=== PATIENT | male | born 1980 | race Caucasian/White ===

== ENCOUNTER 2023-08-04 10:56 | Outpatient (OUT) | payer OTHER, SELFPAY ==
--- NOTE | 2023-08-04 11:03 | XR_ITS ---
The [address] [address] Patient Name: VITO CHRISTIANSON MRN: [id number] date: 1980 Sex: M Assigned Patient Location: [facility] Current Patient Location: [facility] Accession/Order Number: [id number] Exam Date: 08/04/2023 11:05 Report Date: 08/04/2023 11:31 At the request of: HERI BAUTISTA Procedure: XR elbow LT min 3V PROCEDURE: XR elbow LT min 3V HISTORY: Injury to Left Elbow, Left Elbow Pain COMPARISON: None. FINDINGS: BONES:No fracture, acute abnormality, or significant arthropathy. SOFT TISSUES:No visible soft tissue swelling. EFFUSION:Moderate size joint effusion. OTHER: Negative. XR/XR elbow LT min 3V IMPRESSION: 1. Moderate size joint effusion of uncertain etiology. 2. No fracture or appreciable cortical avulsion. Electronically authenticated by: CHELE RODRIGUEZ Date: 08/04/2023 11:31
== END 2023-08-04 10:57 | disposition home or self-care (01) ==
PROVIDERS: Visit Provider Nurse Practitioner Family
DX: M25.522 Pain in left elbow (principal); M25.422 Effusion, left elbow
CPT/HCPCS: 73080

== ENCOUNTER 2024-11-27 23:06 | Emergency (ER) | payer OTHER, SELFPAY ==
[2024-11-27 23:17] VITALS: BP 188/112; PULSE 87; TEMP 36.5; O2SAT 97; BMI 24.4
--- OUTSIDE RECORDS SUMMARY | 2024-11-27 23:34 | XMS_ITS | CCD ---
Author Organization [facility] Care Team Providers Care Traffic Manager Name Role Phone PHYSICIAN, DEFAULT Unavailable Unavailable PHYSICIAN, DEFAULT Unavailable Unavailable DR CLARISA SOARES Primary Care Unavailable VANESSA BAJWA Attending Unavailable VANESSA BAJWA Admitting Unavailable CLIVE DEGROOT Unavailable Peggy Ryan Kathy Mcallister Attending Unavailable Kathy Mcallister Attending Unavailable Kathy Mcallister Attending Unavailable Kathy Mcallister Attending Unavailable Kathy Mcallister Admitting Unavailable Kathy Mcallister Attending Unavailable Kathy Mcallister Primary Care Physician Unavailable Primary Care Provider UnavailGILA Donald Attending Unavailable KATHY MCALLISTER Referring Unavailable Kathy Mcallister Admitting Unavailable Kathy Mcallister Attending Unavailable Deborah Aguilera Attending Deborah Purvis Referring UnavailDeborah Dillon Attending Unavaila farzana Medications Current Medications Medication Drug Class(es) Dates Sig (Normalized) Sig (Original) betamethasone 0.5 mg/ml topical cream (2 sources) Corticosteroid Start: 09-25-2024 betamethasone dipropionate 0.05 % cream Indications: Other atopic dermatitis Apply (1g) to affected areas (hands), up to twice a day when flared, do not use one the face, groin, or underarms, 30 day supply 45 g 11 09/25/2024 Active ondansetron 4 mg oral tablet (1 source) Serotonin-3 Receptor Antagonist Start: 07-23-2022 take 1 tablet by mouth every eight hours as needed Ondansetron HCl 4 MG 1 tablet Orally every 8 hours as needed for 7 days Jul, Active Problems Active Problems Problem Classification Problem Date Documented Da te Episodic/Chronic Allergic reactions (2 sources) Atopic dermatitis; Translations: [Other atopic dermatitis] 09-25-2024 Chronic Essential hypertension (2 sources) Hypertensive disorder 11-30-2013 Chronic Fracture of lower limb (1 source) Closed fracture of metatarsal bone 02-11-2010 Episodic Headache; including migraine (5 sources) Migraine, unspecified, not intractable, without status migrainosus; Translations: [Tension-type headache] Onset: 09-14-2021 Chronic Hemorrhoids (1 source) Hemorrhoids 07-20-2024 Episodic Immunizations and screening for infectious disease (1 source) Contact with and (suspected) exposure to other viral communicable diseases Episodic Intestinal infection (1 source) Viral intestinal infection, unspecified Episodic Neoplasms of unspecified nature or uncertain behavior (2 sources) Neoplastic disease; Translations: [Neoplasm of unspecified behavior of bone, soft tissue, and skin] 09-25-2024 Episodic Other aftercare (1 source) Other fpc (current) drug therapy; Translations: [OTH HALF-WAY CURRENT DRUG THERAPY] Onset: 09-16-2021 Episodic Other and unspecified benign neoplasm (2 sources) Melanocytic nevus of trunk; Translations: [Melanocytic nevi of trunk] 09-25-2024 Episodic Other circulatory disease (2 sources) Spider nevus; Translations: [Nevus, non-neoplastic] 09-25-2024 Episodic Other non-traumatic joint disorders (1 source) Shoulder pain 08-25-2013 Episodic Other nutritional; endocrine; and metabolic disorders (1 source) Body mass index 25-29 - overweight 09-04-2024 Episodic Other nutritional; endocrine; and metabolic disorders (1 source) Overweight in adulthood with body mass index of 25 or more but less than 30 09-04-2024 Episodic Other skin disorders (2 sources) Lentiginosis; Translations: [Other melanin hyperpigmentation] 09-25-2024 Episodic Other skin disorders (2 sources) Seborrheic keratosis; Translations: [Other seborrheic keratosis] 09-25-2024 Episodic Residual codes; unclassified (1 source) Tobacco user 07-20-2024 Episodic Skin and subcutaneous tissue infections (1 source) Furuncle 07-20-2024 Episodic Substance-related disorders (2 sources) Nicotine dependence, cigarettes, uncomplicated; Translations: [Smoker] Onset: 09-16-2021 5 Chronic Unclassified (1 source) Patient encounter status 09-04-2024 Past or Other Problems Problem Classification Problem Date Documented Da te Episodic/Chronic Unclassified (1 source) Avulsion fracture (morphologic abnormality) 08-25-2013 Results Test Name Value Interpretation Reference Range Facility Patient Letter FTMCon 2024 Patient Letter [facility] Patient Letter [facility] November 21, 2024 URBANO POLANCO [address] [place] [address] [place] [address] : 1980 Below is a summary of the results of your recent colonoscopy. Your results have been sent to your primary care provider along with recommendations on when the procedure should be repeated. COLONOSCOPY WITH POLYP REMOVAL OR BIOPSY Type of polyp no polyps identified Based on your results we are recommending you repeat the procedure in 10 years You will be placed in our reminder system and will receive a reminder letter prior to your next due date. [facility] [phone] Normal [facility] Reminderson 11-21-2024 Reminders Reminders From: Bárbara Cordon MA S To: [facility] - Reminders/Recalls; Sent: 11/21/2024 13:08:05 EDT Show up: 09/12/2034 13:07:00 EDT Subject: colon recall Due Date/Time: 10/31/2034 13:07:00 EDT Reminder/Recall [address] Aguilera 10/31/24 Normal [facility] Ambulatory Visit Summaryon 0 10-16-2024 Ambulatory Visit Summary Ambulatory Visit Summary URBANO POLANCO :1980 Visit Date:10/16/2024 Ambulatory Visit Instructions Your Diagnosis Screen for colon cancer Smoker Your Care Team Attending Physician - Willy CAMPUZANO, Deborah Green Primary Care Physician - Kathy Mcallister MD This Is Your Medications List magnesium/potassium/s odium sulfates (obsolete) (Suprep Bowel Prep Kit oral liquid) Contact prescribing physician if questions or concerns cyclobenzaprine (cyclobenzaprine 5 mg Tab) Procedures Performed Arthroscopy of Knee, Hernia repair, Open reduction of fracture of hand, Rotator cuff. Discharge Vitals Heart Rate (Peripheral) 76 Blood Pressure 150/101 Height 69 in Height 176 cm Weight 169.094 lb Weight 76.7 kg BMI 24.76 What to do next Scheduled Follow-Up Appointments Wednesday 7:00 AM EDT With: Aly CAMPUZANO, Kathy Shahid Where: [address] [address]- Medications What How Much When Instructions New magnesium/ potassium/ sodium sulfates (obsolete) (Suprep Bowel Prep Kit oral liquid) 177 Milliliter By Mouth As Directed Duration: 2 Doses dilute each 177 ml bottle and drink according to box directions or as directed by physician Pickup at [facility]/pharmacy #[id number] Unchanged cyclobenzaprine (cyclobenzaprine 5 mg Tab) Contact prescribing physician if questions or concerns Pharmacy Information [facility]/pharmacy #[id number]: [address] [place], [place] [id number] [phone] Allergies No Known Allergies Problems Ongoing - Any problem that you are currently receiving treatment for. BMI 25.0-25.9,adult Boil Hemorrhoids HTN (hypertension) Overweight (BMI 25.0-29.9) Physical exam Screen for colon cancer Smoker Tension headache Historical - Any problem that you are no longer receiving treatment for. Avulsion fracture Closed fracture metatarsal HTN [Hypertension] Shoulder pain Patient Survey You may receive a survey via text or e-mail asking about your office visit. Please share your experience with us by completing your survey. We appreciate your feedback and thank you for choosing us for your care. Normal [facility] Gastroenterology Office/Clin ic Noteon 10-16-2024 Gastroenterology Office/Clinic Note Gastroenterology Office/Clinic Note Chief Complaint intermittent rectal bleeding HPI Staff New patient is a(n) 43 year old male who was referred by Dr Mcallister for a screening colonoscopy. Denies Fhx colon cancer/diseases. Denies previous EGD/Colonoscopy or Cologuard. Denies hx colon cancer/polyps. Denies n/v/c/d, abd pain or mucus stools. - c/o intermittent rectal bleeding GLP-1 agonists? no History of Present Illness Reviewed HPI collected by staff Review of Systems PHQ Score Initial Depression Screen Score: 0 SCORE All systems reviewed, negative; Except for above Physical Exam Vitals & Measurements HR: 76(Peripheral) BP: 150/101 HT: 69 in HT: 176 cm WT: 169.094 lb WT: 76.7 kg BMI: 24.76 No acute distress Assessment/Plan 1. Screen for colon cancer (Z12.11: Encounter for screening for malignant neoplasm of colon) - Schedule Colonoscopy to evaluate. Discussed risks such as bleeding, injury and perforation as well as benefits. Patient agreeable. 2. Smoker (F17.200: Nicotine dependence, unspecified, uncomplicated) Counseled on tobacco cessation I, Miladis Little, personally scribed for Deborah Aguilera on 10/16/2024 08:51:29. . Documentation recorded by Miladis Little, accurately reflects the services I performed and decisions made by me. Deborah Aguilera MD Follow-up No qualifying data available Problem List/Past Medical History Ongoing BMI 25.0-25.9,adult Boil Hemorrhoids HTN (hypertension) Overweight (BMI 25.0-29.9) Physical exam Screen for colon cancer Smoker Tension headache Historical Avulsion fracture Closed fracture metatarsal HTN [Hypertension] Shoulder pain Procedure/Surgical History Arthroscopy of Knee, Hernia repair, Open reduction of fracture of hand, Rotator cuff. Medications cyclobenzaprine 5 mg Tab Suprep Bowel Prep Kit oral liquid, 177 mL, Oral, As Directed Allergies No Known Allergies Social History Alcohol Current. Liquor. 1-2 times per week., 07/26/2024 Substance Abuse - Denies Substance Abuse, 01/18/2010 Never., 07/26/2024 Tobacco 10 or more cigarettes (1/2 pack or more)/day in last 30 days Tobacco Use:. Never Smokeless Tobacco Use:. Cigarettes, 20 per day. Ready to change: No. Household tobacco concerns: No., 10/16/2024 Family History Hypertension: Mother and Father. Immunizations Vaccine Date Status hepatitis B adult vaccine 11/18/2004 Recorded hepatitis B adult vaccine 06/17/2004 Recorded hepatitis B adult vaccine 05/13/2004 Recorded Normal [facility] Comment on above: Result Comment: Elec tronically Signed By: Willy CAMPUZANO, Deborah Green\.br\Date and Time Signed: 10/16/24 08:53 EDT\.br\Electronically Co-Signed By: Miladis Little MA\.galilea\Date and Time Co-Signed: 10/16/24 08:53 EDT No Panel Informationon 09-25 Type of biopsy: tangential Informed consent: discussed and consent obtained Informed consent comment: The risks and benefits of the biopsy were discussed. Risks include but are not limited to bleeding, infection, scarring, pain, and nerve damage. An opportunity to ask questions prior to the procedure was permitted and all questions were answered. Patient was prepped and draped in usual sterile fashion: area cleansed with alcohol. Anesthesia: the lesion was anesthetized in a standard fashion Anesthetic: 1% lidocaine w/ epinephrine 1-100,000 buffered w/ 8.4% NaHCO3 Instrument used: DermaBlade Hemostasis achieved with: electrodesiccation Outcome: patient tolerated procedure well Outcome comment: The specimen was placed in a prelabeled formalin container to be sent for pathology Post-procedure details: sterile dressing applied and wound care instructions given Post-procedure details comment: Emphasized need to contact clinic for any signs of infection, uncontrollable bleeding, or complications. Dressing type: bandage Additional details: Photo taken Amount of lidocaine used: 0.6 cc [facility] Type of biopsy: tangential Informed consent: discussed and consent obtained Informed consent comment: The risks and benefits of the biopsy were discussed. Risks include but are not limited to bleeding, infection, scarring, pain, and nerve damage. An opportunity to ask questions prior to the procedure was permitted and all questions were answered. Patient was prepped and draped in usual sterile fashion: area cleansed with alcohol. Anesthesia: the lesion was anesthetized in a standard fashion Anesthetic: 1% lidocaine w/ epinephrine 1-100,000 buffered w/ 8.4% NaHCO3 Instrument used: DermaBlade Hemostasis achieved with: electrodesiccation Outcome: patient tolerated procedure well Outcome comment: The specimen was placed in a prelabeled formalin container to be sent for pathology Post-procedure details: sterile dressing applied and wound care instructions given Post-procedure details comment: Emphasized need to contact clinic for any signs of infection, uncontrollable bleeding, or complications. Dressing type: bandage Additional details: Photo taken Amount of lidocaine used: 0.4 cc [facility] Ambulatory Visit Summaryon 0 09-04-2024 Ambulatory Visit Summary Ambulatory Visit Summary URBANO POLANCO :1980 Visit Date:09/04/2024 Ambulatory Visit Instructions Your Diagnosis Physical exam HTN (hypertension) BMI 25.0-25.9,adult Overweight (BMI 25.0-29.9) Smoker Encounter for surveillance of abnormal nevi Colon cancer screening Your Care Team Attending Physician - Kathy Mcallister MD Primary Care Physician - Kathy Mcallister MD This Is Your Medications List [Image Removed: STOP]Stop taking these medications buPROPion (Wellbutrin SR 150 mg Tab-ER) Procedures Performed Arthroscopy of Knee, Hernia repair, Open reduction of fracture of hand, Rotator cuff. Discharge Vitals Temperature (Tympanic) 36.8 ???C Heart Rate (Peripheral) 84 Respiratory Rate 18 Blood Pressure 138/86 Height 176.5 cm Height 69 in Weight 79.6 kg Weight 175.488 lb BMI 25.55 What to do next Scheduled Follow-Up Appointments Wednesday 7:00 AM EDT With: Kathy Mcallister MD Where: [facility] [place] [phone]- Someone Will Contact You Regarding These Appointments [facility] External Ambulatory Referral, Dermatology, 09/04/24 7:48:00 EDT, Physical exam HTN (hypertension) BMI 25.0-25.9,adult Overweight (BMI 25.0-29.9) Smoker Medications What How Much When Why Comments Stop Taking buPROPion (Wellbutrin SR 150 mg Tab-ER) 1 Tablets By Mouth 2 times a day HTN (hypertension) Hemorrhoids Tension headache Boil BMI 25.0-25.9,adult Overweight (BMI 25.0-29.9) Tobacco use Allergies No Known Allergies Problems Ongoing - Any problem that you are currently receiving treatment for. BMI 25.0-25.9,adult Boil Hemorrhoids HTN (hypertension) Overweight (BMI 25.0-29.9) Physical exam Smoker Tension headache Historical - Any problem that you are no longer receiving treatment for. Avulsion fracture Closed fracture metatarsal HTN [Hypertension] Shoulder pain Patient Survey You may receive a survey via text or e-mail asking about your office visit. Please share your experience with us by completing your survey. We appreciate your feedback and thank you for choosing us for your care. Education [employer] BMI for Adults Body mass index (BMI) is a number found using a person's weight and height. BMI can help tell how much of a person's weight is made up of fat. BMI does not measure body fat directly. It is used instead of tests that directly measure body fat, which can be difficult and expensive. What are BMI measurements used for? BMI is useful to: ??? Find out if your weight puts you at higher risk for medical problems. ??? Help recommend changes, such as in diet and exercise. This can help you reach a healthy weight. BMI screening can be done again to see if these changes are working. How is BMI calculated? Your height and weight are measured. The BMI is found from those numbers. This can be done with U.S. or metric measurements. Note that charts and online BMI calculators are available to help you find your BMI quickly and easily without doing these calculations. To calculate your BMI in U.[place]. measurements: 1. Measure your weight in pounds (lb). 2. Multiply the number of pounds by 703. ??? So, for an adult who weighs 150 lb, multiply that number by 703: 150 x 703, which equals 105,450. 3. Measure your height in inches. Then multiply that number by itself to get a measurement called inches squared. ??? So, for an adult who is 70 inches tall, the inches squared measurement is 70 inches x 70 inches, which equals 4,900 inches squared. 4. Divide the total from step 2 (number of lb x 703) by the total from step 3 (inches squared): 105,450 ??? 4,900 = 21.5. This is your BMI. To calculate your BMI in metric measurements: 1. Measure your weight in kilograms (kg). ??? For this example, the weight is 70 kg. 2. Measure your height in meters (m). Then multiply that number by itself to get a measurement called meters squared. ??? So, for an adult who is 1.75 m tall, the meters squared measurement is 1.75 m x 1.75 m, which equals 3.1 meters squared. 3. Divide the number of kilograms (your weight) by the meters squared number. In this example: 70 ??? 3.1 = 22.6. This is your BMI. What do the results mean? BMI charts are used to see if you are underweight, normal weight, overweight, or obese. The following guidelines will be used: ??? Underweight: BMI less than 18.5. ??? Normal weight: BMI between 18.5 and 24.9. ??? Overweight: BMI between 25 and 29.9. ??? Obese: BMI of 30 or above. BMI is a tool and cannot diagnose a condition. Talk with your health care provider about what your BMI means for you. Keep these notes in mind: ??? Weight includes fat and muscle. Someone with a muscular build, such as an athlete, may have a BMI that is higher than 24.9. In cases like th (more content not included)... Normal [facility] CBC w/ Auto Diffon 5 Basophils/100 WBC (Bld) 1.2 % Normal 0.0-2.0 [facility] Comment on above: Performed By: #### 2 [id number] #### [facility] [address] [place] [address] Basophils/Leukocytes Auto (Bld) [Pure # fraction] 0.1 E9/L Normal 0.0-0.2 [facility] Comment on above: Performed By: #### 2 [id number] #### [facility] [address] [place] [address] Eosinophils (Bld) [#/Vol] 0.3 E9/L Normal 0.0-0.5 [facility] Comment on above: Performed By: #### 2 [id number] #### [facility] [address] [place] [address] Eosinophils/100 WBC (Bld) 4.6 % Normal 0.0-8.0 [facility] Comment on above: Performed By: #### 2 [id number] #### [facility] [address] [place] [address] Erythrocyte distribution width (RBC) [Ratio] 12.9 % Normal 10.9-14.2 [facility] Comment on above: Performed By: #### 2 [id number] #### [facility] [address] [place] [address] Hematocrit (Bld) [Volume fraction] 45.9 % Normal 37.7-49.0 [facility] Comment on above: Performed By: #### 2 [id number] #### [facility] [address] [place] [address] Hemoglobin (Bld) [Mass/Vol] 15.9 g/dL Normal 13.5-17.5 [facility] Comment on above: Performed By: #### 2 [id number] #### [facility] [address] [place] [address] Lymphocytes (Bld) [#/Vol] 2.3 E9/L Normal 1.0-4.0 [facility] Comment on above: Performed By: #### 2 [id number] #### [facility] [address] [place] [address] Lymphocytes/100 WBC (Bld) 34.0 % Normal 14.0-50.0 [facility] Comment on above: Performed By: #### 2 [id number] #### [facility] [address] [place] [address] MCH (RBC) [Entitic mass] 30.3 pg Normal 27.0-34.0 [facility] Comment on above: Performed By: #### 2 [id number] #### [facility] [address] [place] [address] MCHC (RBC) [Mass/Vol] 34.5 g/dL Normal 31.4-36.0 [facility] Comment on above: Performed By: #### 2 [id number] #### [facility] [address] [place] [address] MCV (RBC) [Entitic vol] 87.6 fL Normal 80.0-100.0 [facility] Comment on above: Performed By: #### 2 [id number] #### [facility] [address] [place] [address] Monocytes (Bld) [#/Vol] 0.4 E9/L Normal 0.2-1.0 [facility] Comment on above: Performed By: #### 2 [id number] #### [facility] [address] [place] [address] Neutrophils (Bld) [#/Vol] 3.7 E9/L Normal 2.0-7.5 [facility] Comment on above: Performed By: #### 2 [id number] #### [facility] [address] [place] [address] Neutrophils/100 WBC (Bld) 53.8 % Normal 36.0-75.0 [facility] Comment on above: Performed By: #### 2 [id number] #### [facility] [address] [place] [address] Platelet 263.0 E9/L Normal 150.0-500.0 [facility] Comment on above: Performed By: #### 2 [id number] #### [facility] [address] [place] [address] Platelet mean volume (Bld) [Entitic vol] 8.2 fL Normal 6.4-10.8 [facility] Comment on above: Performed By: #### 2 [id number] #### [facility] [address] [place] [address] RBC (Bld) [#/Vol] 5.2 E12/L Normal 4.3-5.9 [facility] Comment on above: Performed By: #### 2 [id number] #### [facility] [address] [place] [address] WBC corrected for nucl RBC Auto (Bld) [#/Vol] 6.9 E9/L Normal 4.0-11.0 [facility] Comment on above: Performed By: #### 2 [id number] #### [facility] [address] [place] [address] CHEMISTRYOrdered By: SYSTEM SYSTEM on 09-04-2024 Albumin [Mass/Vol] 4.5 g/dL Normal 3.3 - 5.0 gm/dL [facility] Albumin/Globulin [Mass ratio] 1.9 {ratio} Normal 1.1 - 2.2 [facility] ALP [Catalytic activity/Vol] 104 [iU]/d High 21 - 98 Int._Unit/L [facility] ALT No additional P-5'-P [Catalytic activity/Vol] 12 [iU]/d Normal 6 - 46 Int._Unit/L [facility] Anion gap [Moles/Vol] 14 mmol/L Normal 6 - 16 mEq/L [facility] AST [Catalytic activity/Vol] 19 [iU]/d Normal 5 - 43 Int._Unit/L [facility] Bilirubin [Mass/Vol] 0.6 mg/dL Normal 0.0 - 1 .1 mg/dL [facility] Calcium [Mass/Vol] 9.1 mg/dL Normal 8.9 - 11. 1 mg/dL [facility] Chloride [Moles/Vol] 106 mmol/L Normal 101 - 1 11 mmol/L [facility] Cholesterol [Mass/Vol] 183 mg/dL Normal 120 - 200 mg/dL [facility] Cholesterol in HDL [Mass/Vol] 52 mg/dL Invalid Interpretation Code [facility] Comment on above: Result Comment: '>= 60 LOW RISK' '<= 40 HIGH RISK' Cholesterol in LDL [Mass/Vol] 115 mg/dL Normal <=129mg/dL [facility] Cholesterol in VLDL [Mass/Vol] 32 mg/dL Normal 7 - 40 mg/dL [facility] CO2 [Moles/Vol] 25 mmol/L Normal 21 - 31 mmol/L [facility] Creatinine [Mass/Vol] 1.0 mg/dL Normal 0.5 - 1.3 mg/dL [facility] eGFR 95 mL/min/1.73 m2 Normal >=59mL/min /1 .73 m2 [facility] Globulin (S) [Mass/Vol] 2.4 g/dL Normal 1.4 - 4.0 gm/dL [facility] Glucose [Mass/Vol] 84 mg/dL Normal 55 - 199 mg/dL [facility] Potassium [Moles/Vol] 4.1 mmol/L Normal 3.5 - 5.3 mmol/L [facility] Protein [Mass/Vol] 6.9 g/dL Normal 6.0 - 7.8 gm/dL [facility] Sodium [Moles/Vol] 141 mmol/L Normal 135 - 145 mmol/L [facility] Triglyceride [Mass/Vol] 160 mg/dL High <=149mg/dL [facility] Urea nitrogen [Mass/Vol] 9 mg/dL Normal 5 - 21 mg/dL [facility] Urea nitrogen/Creatinine [Mass ratio] 9 mg/mg Low 10 - 20 [facility] CMPon 09-04-2024 Albumin [Mass/Vol] 4.5 g/dL Normal 3.3-5.0 [facility] Comment on above: Performed By: #### 2 [id number] #### [facility] [address] [place] [address] Albumin/Globulin (S) [Mass conc ratio] 1.9 Normal 1.1-2.2 [facility] Comment on above: Performed By: #### 2 [id number] #### [facility] [address] [place] [address] ALP [Catalytic activity/Vol] 104 Int._Unit/L High 21-98 [facility] Comment on above: Performed By: #### 2 [id number] #### [facility] [address] [place] [address] ALT No additional P-5'-P [Catalytic activity/Vol] 12 Int._Unit/L Normal 6-46 [facility] Comment on above: Performed By: #### 2 [id number] #### [facility] [address] [place] [address] Anion gap [Moles/Vol] 14 mmol/L Normal 6-16 [facility] Comment on above: Performed By: #### 2 [id number] #### [facility] [address] [place] [address] AST [Catalytic activity/Vol] 19 Int._Unit/L Normal 5-43 [facility] Comment on above: Performed By: #### 2 [id number] #### [facility] [address] [place] [address] Bilirubin [Mass/Vol] 0.6 mg/dL Normal 0.0-1.1 [facility] Comment on above: Performed By: #### 2 [id number] #### [facility] [address] [place] [address] Calcium [Mass/Vol] 9.1 mg/dL Normal 8.9-11.1 [facility] Comment on above: Performed By: #### 2 [id number] #### [facility] [address] [place] [address] Chloride [Moles/Vol] 106 mmol/L Normal 101-111 [facility] Comment on above: Performed By: #### 2 [id number] #### [facility] [address] [place] [address] CO2 [Moles/Vol] 25 mmol/L Normal 21-31 [facility] Comment on above: Performed By: #### 2 [id number] #### [facility] [address] [place] [address] Creatinine [Mass/Vol] 1.0 mg/dL Normal 0.5-1.3 [facility] Comment on above: Performed By: #### 2 [id number] #### [facility] [address] [place] [address] Globulin (S) [Mass/Vol] 2.4 g/dL Normal 1.4-4.0 [facility] Comment on above: Performed By: #### 2 [id number] #### [facility] [address] [place] [address] Glucose [Mass/Vol] 84 mg/dL Normal 55-199 [facility] Comment on above: Performed By: #### 2 [id number] #### [facility] [address] [place] [address] Potassium [Moles/Vol] 4.1 mmol/L Normal 3.5-5.3 [facility] Comment on above: Performed By: #### 2 [id number] #### [facility] [address] [place] [address] Protein [Mass/Vol] 6.9 g/dL Normal 6.0-7.8 [facility] Comment on above: Performed By: #### 2 [id number] #### [facility] [address] [place] [address] Sodium [Moles/Vol] 141 mmol/L Normal 135-145 [facility] Comment on above: Performed By: #### 2 [id number] #### [facility] [address] [place] [address] Urea nitrogen [Mass/Vol] 9 mg/dL Normal 5-21 [facility] Comment on above: Performed By: #### 2 [id number] #### [facility] [address] [place] [address] Urea nitrogen/Creatinine [Mass ratio] 9 No Units Low 10-20 [facility] Comment on above: Performed By: #### 2 [id number] #### [facility] [address] [place] [address] Family Medicine Office/Clini c Noteon 09-04-2024 Family Medicine Office/Clinic Note Family Medicine Office/Clinic Note Chief Complaint Annual Wellness PE Comprehensive physical examination and evaluation of skin changes. HPI Staff Pt presents today for annual wellness. Health Maintenance: Colonoscopy: no PSA: no Last Labs: none Does have some spots on his face that he would like to get looked at. History of Present Illness The patient is a 43-year-old male presenting for a general medical examination, including an evaluation of skin changes. During the visit, the patient expressed concerns about spots on his skin, specifically a particular area on the face that began small and increased in size. He noted the initial size of the lesion was small, similar to others on his face, which have since proliferated. The patient reported a history of hypertension and noted being overweight with a BMI corresponding to 25.0-29.9. He is also a smoker with nicotine dependence. The blood pressure was observed to be stable, and weight management advice included losing 5-10 pounds, although this was acknowledged as challenging with age. Additional past medical history includes a history of nicotine use, with patient acknowledgment of a reduced frequency of motorcycle riding and minimal dietary restrictions, preferring self-prepared meals to dining out. Family history was addressed; no definitive family history of colon cancer was identified. However, there was a vague recollection of his grandfather on the maternal side having some internal issues, though not confirmed as cancer-related, and a past diagnosis of lung cancer was noted without specific inheritance guidance. - Discussion on the importance of weight management and recommendation to lose 5-10 pounds. - Consideration for colorectal screening with Cologuard or colonoscopy; the latter was preferred. - Advising on dermatological consultation for skin lesions. - Skin check advisement due to past case of melanoma and high motivational influence by peer age-specific diagnosis. - Emphasis on continued and regular exercise regimen. - Discussion regarding smoking status and potential smoking cessation plans for better disease risk reduction. Review of Systems PHQ Score Initial Depression Screen Score: 0 SCORE Physical Exam Vitals & Measurements T: 36.8 ???C(Tympanic) HR: 84(Peripheral) RR: 18 BP: 138/86 SpO2: 98% HT: 69 in HT: 176.5 cm WT: 175.488 lb WT: 79.6 kg BMI: 25.55 General: alert, no acute distress ENMT: oral mucosa moist Cardiovascular: Regular rate and rhythm, normal peripheral perfusion Respiratory: Lungs clear to auscultation, respirations non labored Extremities: no deformity, no trauma Neurological: oriented x 4, level of consciousness appropriate for age, CN II-XII intact, motor strength equal & normal bilaterally, speech normal Abdomen: Soft, Non-tender, Non-distended, + Bowel sounds Assessment/Plan 1. Physical exam (Z00.00: Encounter for general adult medical examination without abnormal findings) Routine examination with focus on colon health; patient elects for colonoscopy screening around age 44 due to absent family colon cancer history. Ordered: CBC w/ Auto Diff Comprehensive Metabolic Panel Lipid Panel 2. HTN (hypertension) (I10: Essential (primary) hypertension) Maintain stable blood pressure through lifestyle modifications. Encourage ongoing adherence to exercise routine and diet monitoring. Ordered: CBC w/ Auto Diff Comprehensive Metabolic Panel Lipid Panel 3. BMI 25.0-25.9,adult (Z68.25: Body mass index [BMI] 25.0-25.9, adult) BMI education added. 4. Overweight (BMI 25.0-29.9) (E66.3: Overweight) The plan involves a target weight loss of 5-10 pounds, supported by recommendations for dietary improvements and continued regular exercise. 5. Smoker (F17.200: Nicotine dependence, unspecified, uncomplicated) Please continue working on smoking cessation. 6. Encounter for surveillance of abnormal nevi (Z13.89: Encounter for screening for other disorder) Dermatology referral for evaluation of facial lesions identified to seek professional assessment and treatment. 43-year-old male with essential hypertension and overweight presenting for general medical examination and dermatological evaluation. The patient maintains a stable blood pressure with lifestyle modification recommendations, including weight reduction. Facial lesions noted; dermatologic assessment advised. No significant family history of colon cancer reported, suggesting routine screening upon turning 44. Nicotine dependence noted; cessation discussions recommended for disease risk reduction. Patient reported regular exercise adherence. During the visit, I thoroughly discussed the importance of weight management and its impact on overall health with the patient, advising a weight loss plan of 5-10 pounds through diet and regular exercise. I reviewed options for colon cancer screening, offering Cologuard or colonoscopy, with the patient preferring the la (more content not included)... Normal [facility] Comment on above: Result Comment: Elec tronically Signed By: Aly CAMPUZANO, Kathy Shahid\.br\Date and Time Signed: 09/04/24 07:47 EDT HEMATOLOGYOrdered By: SYSTEM SYSTEM on 09-04-2024 Basophils/100 WBC (Bld) 1.2 % Normal 0.0 - 2.0 % Remisol Heme Basophils/Leukocytes Auto (Bld) [Pure # fraction] 0.1 E9/L Normal 0.0 - 0.2 E9/L [facility] Eosinophils (Bld) [#/Vol] 0.3 E9/L Normal 0.0 - 0.5 E9/L [facility] Eosinophils/100 WBC (Bld) 4.6 % Normal 0.0 - 8.0 % Rem[facility]e Erythrocyte distribution width (RBC) [Ratio] 12.9 % Normal 10.9 - 14.2 % [facility] Hematocrit (Bld) [Volume fraction] 45.9 % Normal 37.7 - 49.0 % [facility] Hemoglobin (Bld) [Mass/Vol] 15.9 g/dL Normal 13.5 - 17.5 gm/dL [facility] Lymphocytes (Bld) [#/Vol] 2.3 E9/L Normal 1.0 - 4.0 E9/L [facility] Lymphocytes/100 WBC (Bld) 34.0 % Normal 14.0 - 50.0 % Remisol Heme MCH (RBC) [Entitic mass] 30.3 pg Normal 27.0 - 34.0 pg Remisol Heme MCHC (RBC) [Mass/Vol] 34.5 g/dL Normal 31.4 - 36.0 gm/dL [facility]e MCV (RBC) [Entitic vol] 87.6 fL Normal 80.0 - 100.0 fL [facility] Monocytes (Bld) [#/Vol] 0.4 E9/L Normal 0.2 - 1.0 E9/L [facility]e Monocytes/100 WBC (Bld) 6.4 % Normal 4.0 - 14.0 % Rem[facility] Heme Neutrophils (Bld) [#/Vol] 3.7 E9/L Normal 2.0 - 7.5 E9/L [facility] Neutrophils/100 WBC (Bld) 53.8 % Normal 36.0 - 75.0 % [facility] Platelet 263.0 E9/L Normal 150.0 - 500.0 E9/L [facility] Platelet mean volume (Bld) [Entitic vol] 8.2 fL Normal 6.4 - 10.8 fL [facility]e RBC (Bld) [#/Vol] 5.2 E12/L Normal 4.3 - 5.9 E12/L [facility] WBC corrected for nucl RBC Auto (Bld) [#/Vol] 6.9 E9/L Normal 4.0 - 11.0 E9/L [facility] Lipid Panelon 09-04-2024 Cholesterol [Mass/Vol] 183 mg/dL Normal 120-200 [facility] Comment on above: Performed By: #### 2 [id number] #### [facility] [address] [place] [address] Cholesterol in HDL [Mass/Vol] 52 mg/dL Invalid Interpretation Code [facility] Comment on above: Result Comment: '>= 60 LOW RISK' '<= 40 HIGH RISK' Performed By: #### 2 [id number] #### [facility] [address] [place] [address] Cholesterol in LDL [Mass/Vol] 115 mg/dL Normal <=129 [facility] Comment on above: Performed By: #### 2 [id number] #### [facility] [address] [place] [address] Cholesterol in VLDL [Mass/Vol] 32 mg/dL Normal 7-40 [facility] Comment on above: Performed By: #### 2 [id number] #### [facility] [address] [place] [address] Triglyceride [Mass/Vol] 160 mg/dL High <=149 [facility] Comment on above: Performed By: #### 2 [id number] #### [facility] [address] [place] [address] eGFRon 09-04-2024 eGFR 95 mL/min/1.73 m2 Normal >=59 [facility] Comment on above: Performed By: #### 1 [id number] #### [facility] [address] [place] [address] Ambulatory Visit Summaryon 0 07-27-2024 Ambulatory Visit Summary Ambulatory Visit Summary MISAJUAN PABLO LERUFINA Navarro :1980 Visit Date:07/27/2024 Ambulatory Visit Instructions Your Diagnosis HTN (hypertension) Hemorrhoids Tension headache Boil BMI 24.0-24.9, adult Tobacco use Your Care Team Attending Physician - Kathy Mcallister MD Primary Care Physician - Kathy Mcallister MD This Is Your Medications List buPROPion (Wellbutrin SR 150 mg Tab-ER) ciprofloxacin (Cipro 500 mg Tab) Procedures Performed Arthroscopy of Knee, Hernia repair, Open reduction of fracture of hand, Rotator cuff. Discharge Vitals Temperature (Tympanic) 36.8 ???C Heart Rate (Peripheral) 84 Respiratory Rate 18 Blood Pressure 136/86 Height 176.5 cm Height 69 in Weight 76.7 kg Weight 169.094 lb BMI 24.62 What to do next Scheduled Follow-Up Appointments 2024 7:15 AM EDT With: Kathy Mcallister MD Where: [address] [address]- Medications What How Much When Why Instructions Unchanged buPROPion (Wellbutrin SR 150 mg Tab-ER) 1 Tablets By Mouth 2 times a day HTN (hypertension) Hemorrhoids Tension headache Boil BMI 25.0-25.9,adult Overweight (BMI 25.0-29.9) Tobacco use Unchanged ciprofloxacin (Cipro 500 mg Tab) 1 Tablets By Mouth Every 12 hours HTN (hypertension) Hemorrhoids Tension headache Boil BMI 25.0-25.9,adult Overweight (BMI 25.0-29.9) Tobacco use Duration: 7 Days Allergies No Known Allergies Problems Ongoing - Any problem that you are currently receiving treatment for. BMI 24.0-24.9, adult BMI 25.0-25.9,adult Boil Hemorrhoids HTN (hypertension) Overweight (BMI 25.0-29.9) Tension headache Historical - Any problem that you are no longer receiving treatment for. Avulsion fracture Closed fracture metatarsal HTN [Hypertension] Shoulder pain Patient Survey You may receive a survey via text or e-mail asking about your office visit. Please share your experience with us by completing your survey. We appreciate your feedback and thank you for choosing us for your care. Normal [facility] Family Medicine Office/Clini c Noteon 07-27-2024 Family Medicine Office/Clinic Note Family Medicine Office/Clinic Note Chief Complaint 1wk follow up HPI Staff Pt presents today for 1wk follow up to boil on leg. Given cipro BID x7days. Took for 4 days then got sick, then restarted yesterday. Also given Wellbutrin to aid in smoking cessation. Did start last Wednesday, but then stopped when he was sick. Plans on restarting today. States he was supposed to get a muscle relaxer for tension headaches, but nothing was sent to pharmacy. Boil is black/purple. States it has gone down in size. History of Present Illness Here for follow up. NO issues at this time. Would like to try the muscle relaxer for his head aches. Restarted his meds after getting sick. Review of Systems PHQ Score Initial Depression Screen Score: 0 SCORE Physical Exam Vitals & Measurements T: 36.8 ???C(Tympanic) HR: 84(Peripheral) RR: 18 BP: 136/86 SpO2: 96% HT: 69 in HT: 176.5 cm WT: 76.7 kg WT: 169.094 lb BMI: 24.62 General: alert, no acute distress ENMT: oral mucosa moist, Cardiovascular: normal peripheral perfusion Respiratory: respirations non labored Extremities: no deformity, no trauma, Boil is not a resolving. Area is purple and becoming flesh colored. Neurological: oriented x 4, LOC appropriate for age, CN II-XII intact, motor strength equal & normal bilaterally, speech normal Assessment/Plan 1. HTN (hypertension) (I10: Essential (primary) hypertension) At goal. Not on meds. Will resolve at this time 2. Hemorrhoids (K64.9: Unspecified hemorrhoids) NO issues today. Doing well. 3. Tension headache (G44.209: Tension-type headache, unspecified, not intractable) Will do flexiril 5mg daily. NO drinking or driving. 4. Boil (L02.92: Furuncle, unspecified) Improving. Please finish the cipro. 5. Tobacco use (Z72.0: Tobacco use) Continue wellbutrin. Follow up in 6 weeks for a CPE. Orders: cyclobenzaprine, 5 mg = 1 tab(s), Oral, TID, PRN Pain, X 10 day(s), # 30 tab(s), Refills(s) 0, Pharmacy: [facility]/pharmacy #[id number], 176.5, cm, 07/27/24 7:18:00 EST, Height/Length Dosing, 76.7, kg, 07/27/24 7:18:00 EST, Weight Dosing Follow-up No qualifying data available Patient Education Hypertension, Adult Problem List/Past Medical History Ongoing Boil Hemorrhoids HTN (hypertension) Tension headache Historical Avulsion fracture Closed fracture metatarsal HTN [Hypertension] Shoulder pain Procedure/Surgical History Arthroscopy of Knee, Hernia repair, Open reduction of fracture of hand, Rotator cuff. Medications Cipro 500 mg Tab, 500 mg= 1 tab(s), Oral, q12hr cyclobenzaprine 5 mg Tab, 5 mg= 1 tab(s), Oral, TID, PRN Wellbutrin SR 150 mg Tab-ER, 150 mg= 1 tab(s), Oral, BID Allergies No Known Allergies Social History Alcohol Current. Liquor. 1-2 times per week., 07/26/2024 Substance Abuse - Denies Substance Abuse, 01/18/2010 Never., 07/26/2024 Tobacco 10 or more cigarettes (1/2 pack or more)/day in last 30 days Tobacco Use:. Never Smokeless Tobacco Use:. Cigarettes, Household tobacco concerns: No. Yes, 07/27/2024 Current, 20 per day. Ready to change: No. Household tobacco concerns: No., 01/18/2010 Family History Hypertension: Mother and Father. Immunizations Vaccine Date Status hepatitis B adult vaccine 11/18/2004 Recorded hepatitis B adult vaccine 06/17/2004 Recorded hepatitis B adult vaccine 05/13/2004 Recorded Normal [facility] Comment on above: Result Comment: Elec tronically Signed By: Kathy Mcallister MD\.br\Date and Time Signed: 07/27/24 07:43 EST Ambulatory Visit Summaryon 0 07-20-2024 Ambulatory Visit Summary Ambulatory Visit Summary URBANO POLANCO :1980 Visit Date:07/20/2024 Ambulatory Visit Instructions Your Diagnosis BMI 25.0-25.9,adult Overweight (BMI 25.0-29.9) Tobacco use Your Care Team Attending Physician - Kathy Mcallister MD Primary Care Physician - Kathy Mcallister MD Procedures Performed Arthroscopy of Knee, Hernia repair, Open reduction of fracture of hand, Rotator cuff. Discharge Vitals Temperature (Tympanic) 36.8 ???C Heart Rate (Peripheral) 92 Respiratory Rate 18 Blood Pressure 124/78 Height 176.5 cm Height 69 in Weight 77.9 kg Weight 171.74 lb BMI 25.01 What to do next Scheduled Follow-Up Appointments 2024 7:15 AM EST With: Kathy Mcallister MD Where: [facility] [address] [address]- Allergies No Known Allergies Problems Ongoing - Any problem that you are currently receiving treatment for. BMI 25.0-25.9,adult Overweight (BMI 25.0-29.9) Historical - Any problem that you are no longer receiving treatment for. Avulsion fracture Closed fracture metatarsal HTN [Hypertension] Shoulder pain Patient Survey You may receive a survey via text or e-mail asking about your office visit. Please share your experience with us by completing your survey. We appreciate your feedback and thank you for choosing us for your care. Normal [facility] Family Medicine Office/Clini c Noteon 07-20-2024 Family Medicine Office/Clinic Note Family Medicine Office/Clinic Note Chief Complaint Establish Care Complaints of leg condition, hemorrhoids, and tension headaches. HPI Staff Establish Care: History: Any previous diagnosis: HTN History of seeing any specialist: no When was your last doctors visit: yrs ago Last provider: Dr Soares Any recent labs: no Health Maintenance UTD: Colonoscopy: NA PSA: unsure Acute: Current issues/complaints: Boil on outer Rt thigh for the past week. Also thinks he may have hemorrhoids. History of Present Illness The patient is a 43-year-old male presenting with complaints of a leg condition and hemorrhoids. He reports an issue with his leg that began approximately one and a half weeks ago following a rolling injury at work. The leg appeared red and scaly after a bump at work, which led to the drainage of some fluid. The patient has been advised to receive antibiotics to manage a potential bacterial infection and observe for signs of fungi. He also presents with hemorrhoids characterized by occasional blood in the stool; the hemorrhoid appears at a 4-5 o'clock position. Hemorrhoid discomfort has been noted along with a stool consistency described as oatmeal-like. In addition, the patient complains of tension headaches located at the back of the neck, worsened with neck movements. These headaches occur frequently, with the patient describing today's episode as mild. The patient is currently a smoker and expresses a desire to quit after an unsuccessful trial of Chantix. His past medical history is significant for hypertension, although his blood pressure reads well at present. - Discussed smoking cessation strategies. - Recommended increased dietary fiber intake to alleviate hemorrhoid symptoms. - Discussed headache management through possible use of muscle relaxants and neck stretching exercises to prevent tension headaches. Review of Systems PHQ Score Initial Depression Screen Score: 0 SCORE Physical Exam Vitals & Measurements T: 36.8 ???C(Tympanic) HR: 92(Peripheral) RR: 18 BP: 124/78 SpO2: 97% HT: 69 in HT: 176.5 cm WT: 77.9 kg WT: 171.74 lb BMI: 25.01 General: alert, no acute distress ENMT: oral mucosa moist Cardiovascular: normal peripheral perfusion Respiratory: respirations non labored Extremities: no deformity, no trauma, slight redness and scaliness observed on the leg Neurological: oriented x 4, level of consciousness appropriate for age, CN II-XII intact, motor strength equal & normal bilaterally, speech normal Abdomen: presence of hemorrhoid at 4-5 o'clock position Assessment/Plan 1. HTN (hypertension) (I10: Essential (primary) hypertension) Watchful waiting since blood pressure was well-controlled today. Encouraged continued adherence to antihypertensive regimen. Ordered: buPROPion, 150 mg = 1 tab(s), Oral, BID, # 180 tab(s), Refills(s) 0, Pharmacy: [facility]/pharmacy #[id number], 176.5, cm, 07/20/24 7:15:00 EST, Height/Length Dosing, 77.9, kg, 07/20/24 7:15:00 EST, Weight Dosing ciprofloxacin, 500 mg = 1 tab(s), Oral, q12hr, X 7 day(s), # 14 tab(s), Refills(s) 0, [id number], 176.5, cm, 07/20/24 7:15:00 EST, Height/Length Dosing, 77.9, kg, 07/20/24 7:15:00 EST, Weight Dosing 2. Hemorrhoids (K64.9: Unspecified hemorrhoids) Recommended [id number] treatment with preparation H and increased dietary fiber. Monitoring for changes in symptomatology. Ordered: buPROPion, 150 mg = 1 tab(s), Oral, BID, # 180 tab(s), Refills(s) 0, Pharmacy: [facility]/pharmacy #[id number], 176.5, cm, 07/20/24 7:15:00 EST, Height/Length Dosing, 77.9, kg, 07/20/24 7:15:00 EST, Weight Dosing ciprofloxacin, 500 mg = 1 tab(s), Oral, q12hr, X 7 day(s), # 14 tab(s), Refills(s) 0, Pharmacy: [facility]/pharmacy #[id number], 176.5, cm, 07/20/24 7:15:00 EST, Height/Length Dosing, 77.9, kg, 07/20/24 7:15:00 EST, Weight Dosing 3. Tension headache (G44.209: Tension-type headache, unspecified, not intractable) Consider muscle relaxants if headaches persist; recommend cervical spine stretching exercises. Ordered: buPROPion, 150 mg = 1 tab(s), Oral, BID, # 180 tab(s), Refills(s) 0, [id number], 176.5, cm, 07/20/24 7:15:00 EST, Height/Length Dosing, 77.9, kg, 07/20/24 7:15:00 EST, Weight Dosing ciprofloxacin, 500 mg = 1 tab(s), Oral, q12hr, X 7 day(s), # 14 tab(s), Refills(s) 0, [id number], 176.5, cm, 07/20/24 7:15:00 EST, Height/Length Dosing, 77.9, kg, 07/20/24 7:15:00 EST, Weight Dosing 4. Boil (L02.92: Furuncle, unspecified) Initiate Cipro for bacterial coverage. Follow up in one week to reassess for possible fungal etiology. Ordered: buPROPion, 150 mg = 1 tab(s), Oral, BID, # 180 tab(s), Refills(s) 0, [id number], 176.5, cm, 07/20/24 7:15:00 EST, Height/Length Dosing, 77.9, kg, 07/20/24 7:15:00 EST, Weight Dosing ciprofloxacin, 500 mg = 1 tab(s), Oral, q12hr, X 7 day(s), # 14 tab(s), Refills(s) 0, [id number], 176.5, cm, 07/20/24 7:15:00 EST, Height/Length Dosing, 77.9, k (more content not included)... Normal [facility] Comment on above: Result Comment: Elec tronically Signed By: Aly CAMPUZANO, Kathy You.br\Date and Time Signed: 07/20/24 07:45 EST Quick Fluon 07-23-2022 FLUAV Ab CF (S) [Titer] Negative [employer] Other FLUBV Ab CF (S) [Titer] Negative [employer] Other CBC AUTO DIFFon 09-14-2021 BASO # 0.1 103/ul Normal 0.0-0.1 [facility] Comment on above: Performed By: #### C BC #### [facility] [address] [place] [address] Dr. Verito Mathur Basophils/100 WBC (Bld) 0.9 % Normal 0.2-2.0 [facility] Comment on above: Performed By: #### C BC #### [facility] [address] [place] [address] Dr. Verito Mathur EO # 0.3 103/ul Normal 0.0-0.7 [facility] Comment on above: Performed By: #### C BC #### [facility] [address] [place] [address] Dr. Verito Mathur Eosinophils/100 WBC (Bld) 3.9 % Normal 0.9-7.0 [facility] Comment on above: Performed By: #### C BC #### [facility] [address] [place] [address] Dr. Verito Mathur Erythrocyte distribution width (RBC) [Ratio] 12.7 % Normal 11.0-15.0 [facility] Comment on above: Performed By: #### C BC #### [facility] [address] [place] [address] Dr. Verito Mathur Hematocrit (Bld) [Volume fraction] 49.1 % Normal 42.0-54.0 [facility] Comment on above: Performed By: #### C BC #### [facility] [address] [place] [address] Dr. Verito Mathur Hemoglobin (Bld) [Mass/Vol] 16.7 g/dL Normal 14.0-18.0 [facility] Comment on above: Performed By: #### C BC #### [facility] [address] [place] [address] Dr. Verito Mathur IG # 0.02 10e3/ul Normal 0.00-0.03 [facility] Comment on above: Performed By: #### C BC #### [facility] [address] [place] [address] Dr. Verito Mathur IG % 0.2 % Normal 0.0-0.5 [facility] Comment on above: Performed By: #### C BC #### [facility] [address] [place] [address] Dr. Verito Mathur LYMPH # 2.3 103/ul Normal 1.2-3.8 [facility] Comment on above: Performed By: #### C BC #### [facility] [address] [place] [address] Dr. Verito Mathur Lymphocytes/100 WBC (Bld) 27.6 % Normal 20.5-60.0 [facility] Comment on above: Performed By: #### C BC #### [facility] [address] [place] [address] Dr. Verito Mathur MANUAL DIFF REQ NO Normal [facility] Comment on above: Performed By: #### C BC #### [facility] [address] [place] [address] Dr. Verito Mathur MCH (RBC) [Entitic mass] 29.5 pg Normal 25.9-34.0 [facility] Comment on above: Performed By: #### C BC #### [facility] [address] [place] [address] Dr. Verito Mathur MCHC (RBC) [Mass/Vol] 34.0 g/dL Normal 29.9-35.2 [facility] Comment on above: Performed By: #### C BC #### [facility] [address] [place] [address] Dr. Verito Mathur MCV (RBC) [Entitic vol] 86.6 fL Normal 80.0-94.0 [facility] Comment on above: Performed By: #### C BC #### [facility] [address] [place] [address] Dr. Verito Mathur MONO # 0.6 103/ul Normal 0.3-0.8 [facility] Comment on above: Performed By: #### C BC #### [facility] [address] [place] [address] Dr. Verito Mathur Monocytes/100 WBC (Bld) 6.7 % Normal 1.7-12.0 [facility] Comment on above: Performed By: #### C BC #### [facility] [address] [address] [address] Verito Mathur NEUT # 5.0 103/ul Normal 1.4-6.5 [facility] Comment on above: Performed By: #### C BC #### [facility] [address] [place] [address] Dr. Verito Mathur Neutrophils/100 WBC (Bld) 60.7 % Normal 43.0-75.0 [facility] Comment on above: Performed By: #### C BC #### [facility] [address] [place] [address] Dr. Verito Mathur Platelet mean volume (Bld) [Entitic vol] 9.4 fL Critically low 9.5-13.5 [facility] Comment on above: Performed By: #### C BC #### [facility] [address] [place] [address] Dr. Verito Mathur PLT 220 103/ul Normal 150-450 [facility] Comment on above: Performed By: #### C BC #### [facility] [address] [place] [address] Dr. Verito Mathur RBC 5.67 106/ul Normal 4.70-6.10 [facility] Comment on above: Performed By: #### C BC #### [facility] [address] [place] [address] Dr. Verito Mathur WBC 8.2 103/ul Normal 4.0-11.0 [facility] Comment on above: Performed By: #### C BC #### [facility] [address] [place] [address] Dr. Verito Mathur PROF CHEM 8 (BAS METB)on Anion gap [Moles/Vol] 12.8 mmol/L Normal [facility] Comment on above: Performed By: #### B MP #### [facility] [address] [place] [address] Dr. Verito Mathur Calcium [Mass/Vol] 8.7 mg/dL Normal 8.5-10.1 [facility] Comment on above: Performed By: #### B MP #### [facility] [address] [address] [address] Verito Mathur Chloride [Moles/Vol] 103 mmol/L Normal 98-107 [facility] Comment on above: Performed By: #### B MP #### [facility] [address] [address] [address] Verito Mathur CO2 [Moles/Vol] 26.9 mmol/L Normal 22.0-30.0 [facility] Comment on above: Performed By: #### B MP #### [facility] [address] [address] [address] Verito Mathur Creatinine [Mass/Vol] 0.97 mg/dL Normal 0.66-1.25 [facility] Comment on above: Performed By: #### B MP #### [facility] [address] [place] [address] Dr. Verito Mathur EGFR-AF SENEGALESE >60 Normal >=60 [facility] Comment on above: Performed By: #### B MP #### [facility] [address] [address] [address] Verito Mathur EGFR-NON AF SENEGALESE >60 Normal >=60 [facility] Comment on above: Performed By: #### B MP #### [facility] [address] [place] [address] Dr. Verito Mathur Glucose [Mass/Vol] 95 mg/dL Normal 74-106 [facility] Comment on above: Performed By: #### B MP #### [facility] [address] [place] [address] Dr. Verito Mathur Potassium [Moles/Vol] 3.7 mmol/L Normal 3.4-5.0 [facility] Comment on above: Performed By: #### B MP #### [facility] [address] [place] [address] Dr. Verito Mathur Sodium [Moles/Vol] 139 mmol/L Normal 137-145 [facility] Comment on above: Performed By: #### B MP #### [facility] [address] [place] [address] Dr. Verito Mathur Urea nitrogen [Mass/Vol] 11.0 mg/dL Normal 7.0-18.0 [facility] Comment on above: Performed By: #### B MP #### [facility] [address] [address] [address] Verito Mathur Urea nitrogen/Creatinine [Mass ratio] 11.3 mg/mg Normal [facility] Comment on above: Performed By: #### B MP #### [facility] [address] [address] [address] Verito Mathur Vital Signs Date Time Vital Sign Value Performing Clinician Facility 07-23-2022 11:10-0500 Body height 177.8 cm Peggy Ryan Other [facility] Other 07-23-2022 11:10-0500 Body mass index (BMI) [Ratio] 24.39 kg/m2 Peggy Ryan Other [facility] Other 07-23-2022 11:10-0500 Body temperature 98.1 [degF] Peggy Ryan Other [facility] Other 07-23-2022 11:10-0500 Body weight 77.11 kg Peggy Ryan Other [facility] Other 07-23-2022 11:10-0500 Respiratory rate 18 /min Peggy Ryan Other [facility] Other 07-23-2022 11:10-0500 SaO2% (BldA) [Mass fraction] 99 % Peggy Ryan Other [facility] Other Encounters Encounter Date Encounter Type Care Provider Facility Start: 03-05-2025 ambulatory Kathy Mcallister Facility :[facility] Start: 11-01-2024 ambulatory Kathy Mcallister Facility:[facility] Start: 10-31-2024 End: 10-31-2024 ambulatory Deborah Aguilera Facility:CD:[id number] Start: 10-16-2024 End: 10-16-2024 ambulatory Deborah Aguilera Facility:[facility] Start: 09-25-2024 End: 09-25-2024 Bamboo flowsheet Gila Roche MD Work Phone: [facility] Start: 09-25-2024 End: 09-25-2024 Bamboo flowsheet Gila Roche MD Work Phone: [facility] Start: 09-25-2024 End: 09-25-2024 Office outpatient new 45 minutes Gila Roche MD Work Phone: [facility] Comment on above: Other atopic dermati tis (Primary Dx); Lentigines; Melanocytic nevus of trunk; Capillary angioma; Seborrheic keratosis; Neoplasm of unspecified behavior of bone, soft tissue, and skin Start: 09-25-2024 End: 09-25-2024 ambulatory GILA ROCHE Not Available Start: 09-04-2024 End: 09-05-2024 Lab Drop off Kathy Mcallister [facility] Start: 09-04-2024 End: 09-05-2024 ambulatory Kathy Mcallister Facility: [facility] Start: 07-27-2024 End: 07-27-2024 ambulatory Kathy Mcallistre Facility:[facility] Start: 07-20-2024 End: 07-20-2024 ambulatory Kathy Mcallister Facility:[facility] Start: 07-23-2022 End: 07-23-2022 ambulatory Peggy Ryan Other [facility] Other Start: 07-23-2022 Office outpatient ne w 20 minutes Peggy Ryan [facility] Start: 09-14-2021 End: 09-15-[address] CLARISA SOARES Facility:[facility] Start: 01-12-2018 End: 01-13-2018 Patient encounter DEFAULT PHYSICIAN Facility:[facility] Procedures Date Procedure Procedure Detail Performing Clinician Start: 09-25-2024 End: 09-25-2024 SKIN / NAIL BIOPSY Gila Roche MD Work Phone: Arthroscopy of knee Kathy Lizzie german Hernia repair Kathy Mcallister Open reduction of fr acture of hand Kathy Aly Rotator cuff includi ng muscles and tendons (body structure) Kathy Mcallister Comment on above: surgery Plan of Treatment Date Care Activity Detail Author Start: 09-25-2025 End: 09-25-2025 Patient encounter procedure 09/25/2025 1:00 PM EDT Office Visit [facility] [address] [place] [address] Gila Roche MD [address] [place] [address] [facility] Start: 09-25-2024 End: 09-25-2024 Patient encounter procedure 09/25/2024 1:20 PM EDT Office Visit [facility] [address] [place] [id number] Gila Roche MD [address] [place] [address] Arrived [facility] Comment on above: Arrived Dermatopathology exam Dermatopat hology exam Pathology and Cytology Timed Neoplasm of unspecified behavior of bone, soft tissue, and skin Release Upon Ordering for 1 Occurrences starting 09/25/2024 [facility] Work Phone: Comment on above: Release Upon Ordering for 1 Occurrences starting 09/25/2024 Immunizations Immunization Date Immunization Notes Care Provider Jacqueline nolasco 11-18-2004 hepatitis B vaccine, adult dosage Kathy Mcallister [facility] 06-17-2004 hepatitis B vaccine, adult dosage Kathy Mcallister [facility] 05-13-2004 hepatitis B vaccine, adult dosage Kathy Mcallister [facility] Payers Date Payer Category Payer Unknown 2023 Private Health Insurance [employer] [id number] 1979 Unknown [id number] 1979 Unknown [id number] 1979 Unknown [id number] 7 1979 Unknown [id number] 727 1979 Unknown [id number] 727 1979 Unknown [id number] 727 1979 Unknown [id number] [id number] 1979 Unknown [id number] 727 1979 Unknown [id number] 1959 Unknown [id number] Social History Date Type Detail Facility Start: 09-25-2024 Sex Assigned At F [facility] Start: 09-04-2024 Tobacco smoking status Heavy t obacco smoker (finding) [facility] Tobacco smoking status Never [facility] Sexual Orientation [facility] Start: 01-18-2010 Sex Male (finding) [facility] Tobacco smoking stat [facility] Tobacco smoking consumption unknown [facility] Start: 1980 Sex assigned at Not on file [facility] Start: 09-25-2024 Tobacco smoking stat [facility] Smokes tobacco daily [facility] History of tobacco use Cigarette Smoker [facility] Start: 09-25-2024 Tobacco use and exposure Smokeless tobacco non-user [facility] Start: 09-25-2024 Alcoholic beverage intake Current drinker of alcohol (finding) [facility] Start: 09-25-2024 History of Social function [facility] Clinical Notes 07-23-2022 to 09-25-2024 Gila Roche MD - 09/25/2024 1:20 PM EDT Note Date & Type Note Facility 09-25-2024 History of Present illness Narrative Images from the original note were not included. Skin Check Location: Patient requests a full body skin examination Dermatologic history: no history of skin cancer, no history of atypical moles, no family history of melanoma Last visit: New patient Lesions: Location: left cheek Duration: years Quality: denies pain, denies itch, denies bleeding Modifying factors: none Associated symptoms: change in shape Treatments: none Lesion # 2: Location: left chest Duration: years Quality: denies pain, denies itch, denies bleeding Modifying factors: rubs on clothing Associated symptoms: enlarged, red Treatments: none All pertinent medical history, medications, and allergies were reviewed. General Exam: alert, oriented to person, place, and time, normal affect, well appearing Unaccompanied Scalp, Examined , exam limited by hair Right leg Examined Head, Face Examined , Exam limited by noriega and mustache Left leg Examined Neck Examined Right foot Examined Chest Examined Left foot Examined Back Examined Buttocks Examined Abdomen Examined Digits,nails: Examined Right arm Examined Left arm Examined Lymphatics: Not examined Hands Examined Skin Exam 1. LENTIGINES Generalized Scattered alvarado macules in sun-exposed areas. The patient was informed that lentigines are benign pigmented lesions that occur on sun-exposed and sun-damaged skin. No treatment is necessary. Recommended regular use of broad spectrum sunscreen SPF 30 or higher 2. MELANOCYTIC NEVUS OF TRUNK Generalized Scattered benign appearing, regular brown to light brown melanocytic papules and macules with similar morphology Counseled regarding these benign growths. Rarely, a nevus can develop into malignant melanoma, so any changing nevi should be promptly re-evaluated. 3. OTHER ATOPIC DERMATITIS Left Hand - Anterior, Right Hand - Anterior Scaly erythematous plaques +/- dyspigmentation, lichenification, excoriations. Flaring today Discussed that atopic dermatitis is a chronic condition that can be controlled but not cured. Start Betamethasone cream bid prn when flared, hold if smooth/asymptomatic. Encouraged daily moisturizing and gentle cleansers to prevent flares. Notify office if flaring despite treatment. Related Medications betamethasone dipropionate 0.05 % cream Apply (1g) to affected areas (hands), up to twice a day when flared, do not use one the face, groin, or underarms, 30 day supply 4. CAPILLARY ANGIOMA Generalized Scattered yoon-red papule(s). The patient was informed that angiomas are benign growths on the the skin. No treatment is necessary. 5. SEBORRHEIC KERATOSIS Head - Anterior (Face) Stuck on verrucous, alvarado-brown papules and plaques. Patient was counseled regarding these benign growths. Removal is normally not necessary, but they may be removed if they are symptomatic or for cosmetic reasons. 6. NEOPLASM OF UNSPECIFIED BEHAVIOR OF BONE, SOFT TISSUE, AND SKIN (2) Left Zygomatic Area Irregularly pigmented papule Lesion biopsy Type of biopsy: tangential Informed consent: discussed and consent obtained Informed consent comment: The risks and benefits of the biopsy were discussed. Risks include but are not limited to bleeding, infection, scarring, pain, and nerve damage. An opportunity to ask questions prior to the procedure was permitted and all questions were answered. Patient was prepped and draped in usual sterile fashion: area cleansed with alcohol. Anesthesia: the lesion was anesthetized in a standard fashion Anesthetic: 1% lidocaine w/ epinephrine 1-100,000 buffered w/ 8.4% NaHCO3 Instrument used: DermaBlade Hemostasis achieved with: electrodesiccation Outcome: patient tolerated procedure well Outcome comment: The specimen was placed in a prelabeled formalin container to be sent for pathology Post-procedure details: sterile dressing applied and wound care instructions given Post-procedure details comment: Emphasized need to contact clinic for any signs of infection, uncontrollable bleeding, or complications. Dressing type: bandage Additional details: Photo taken Amount of lidocaine used: 0.4 cc Specimen A - Dermatopathology exam Differential Diagnosis: pigmented AK vs lentigo maligna vs lentigo Check Margins: No Size of lesion: 1.3 x 1.5 cm Left Chest [place] papule Lesion biopsy Type of biopsy: tangential Informed consent: discussed and consent obtained Informed consent comment: The risks and benefits of the biopsy were discussed. Risks include but are not limited to bleeding, infection, scarring, pain, and nerve damage. An opportunity to ask questions prior to the procedure was permitted and all questions were answered. Patient was prepped and draped in usual sterile fashion: area cleansed with alcohol. Anesthesia: the lesion was anesthetized in a standard fashion Anesthetic: 1% lidocaine w/ epinephrine 1-100,000 buffered w/ 8.4% NaHCO3 Instrument used: DermaBlade Hemostasis achieved with: electrodesiccation Outcome: patient tolerated procedure well Outcome comment: The specimen was placed in a prelabeled formalin container to be sent for pathology Post-procedure details: sterile dressing applied and wound care instructions given Post-procedure details comment: Emphasized need to contact clinic for any signs of infection, uncontrollable bleeding, or complications. Dressing type: bandage Additional details: Photo taken Amount of lidocaine used: 0.6 cc Specimen B - Dermatopathology exam Differential Diagnosis: neurofibroma vs inflamed nevus Check Margins: No Size of lesion: 0.7 x 0.7 cm Next Visit: 1 year skin check documented in this encounter [facility] 09-04-2024 Note Patient Education Nutrition BMI for Adults Body mass index (BMI) is a number found using a person's weight and height. BMI can help tell how much of a person's weight is made up of fat. BMI does not measure body fat directly. It is used instead of tests that directly measure body fat, which can be difficult and expensive. What are BMI measurements used for? BMI is useful to: ??? Find out if your weight puts you at higher risk for medical problems. ??? Help recommend changes, such as in diet and exercise. This can help you reach a healthy weight. BMI screening can be done again to see if these changes are working. How is BMI calculated? Your height and weight are measured. The BMI is found from those numbers. This can be done with U.S. or metric measurements. Note that charts and online BMI calculators are available to help you find your BMI quickly and easily without doing these calculations. To calculate your BMI in U.S. measurements: 1. Measure your weight in pounds (lb). 2. Multiply the number of pounds by 703. ??? So, for an adult who weighs 150 lb, multiply that number by 703: 150 x 703, which equals 105,450. 3. Measure your height in inches. Then multiply that number by itself to get a measurement called inches squared. ??? So, for an adult who is 70 inches tall, the inches squared measurement is 70 inches x 70 inches, which equals 4,900 inches squared. 4. Divide the total from step 2 (number of lb x 703) by the total from step 3 (inches squared): 105,450 ? 4,900 = 21.5. This is your BMI. To calculate your BMI in metric measurements: 1. Measure your weight in kilograms (kg). ??? For this example, the weight is 70 kg. 2. Measure your height in meters (m). Then multiply that number by itself to get a measurement called meters squared. ??? So, for an adult who is 1.75 m tall, the meters squared measurement is 1.75 m x 1.75 m, which equals 3.1 meters squared. 3. Divide the number of kilograms (your weight) by the meters squared number. In this example: 70 ? 3.1 = 22.6. This is your BMI. What do the results mean? BMI charts are used to see if you are underweight, normal weight, overweight, or obese. The following guidelines will be used: ??? Underweight: BMI less than 18.5. ??? Normal weight: BMI between 18.5 and 24.9. ??? Overweight: BMI between 25 and 29.9. ??? Obese: BMI of 30 or above. BMI is a tool and cannot diagnose a condition. Talk with your health care provider about what your BMI means for you. Keep these notes in mind: ??? Weight includes fat and muscle. Someone with a muscular build, such as an athlete, may have a BMI that is higher than 24.9. In cases like these, BMI is not a correct measure of body fat. ??? If you have a BMI of 25 or higher, your provider may need to do more testing to find out if excess body fat is the cause. ??? BMI is measured the same way for males and females. Females usually have more body fat than males of the same height and weight. Where to find more information For more information about BMI, including tools to quickly find your BMI, go to: ??? Centers for Disease Control and Prevention: cdc.gov ??? [place] Heart Association: heart.org ??? National Heart, Lung, and Blood [place]: nhlbi.nih.gov This information is not intended to replace advice given to you by your health care provider. Make sure you discuss any questions you have with your health care provider. Document Revised: 02/18/2023 Document Reviewed: 02/11/2023 [employer] Patient Education ? 2023 [employer]. [facility] 07-27-2024 Note Patient Education Cardiovascular Hypertension, Adult High blood pressure (hypertension) is when the force of blood pumping through the arteries is too strong. The arteries are the blood vessels that carry blood from the heart throughout the body. Hypertension forces the heart to work harder to pump blood and may cause arteries to become narrow or stiff. Untreated or uncontrolled hypertension can lead to a heart attack, heart failure, a stroke, kidney disease, and other problems. A blood pressure reading consists of a higher number over a lower number. Ideally, your blood pressure should be below 120/80. The first ( top ) number is called the systolic pressure. It is a measure of the pressure in your arteries as your heart beats. The second ( bottom ) number is called the diastolic pressure. It is a measure of the pressure in your arteries as the heart relaxes. What are the causes? The exact cause of this condition is not known. There are some conditions that result in high blood pressure. What increases the risk? Certain factors may make you more likely to develop high blood pressure. Some of these risk factors are under your control, including: ??? Smoking. ??? Not getting enough exercise or physical activity. ??? Being overweight. ??? Having too much fat, sugar, calories, or salt (sodium) in your diet. ??? Drinking too much alcohol. Other risk factors include: ??? Having a personal history of heart disease, diabetes, high cholesterol, or kidney disease. ??? Stress. ??? Having a family history of high blood pressure and high cholesterol. ??? Having obstructive sleep apnea. ??? Age. The risk increases with age. What are the signs or symptoms? High blood pressure may not cause symptoms. Very high blood pressure (hypertensive crisis) may cause: ??? Headache. ??? Fast or irregular heartbeats (palpitations). ??? Shortness of breath. ??? Nosebleed. ??? Nausea and vomiting. ??? Vision changes. ??? Severe chest pain, dizziness, and seizures. How is this diagnosed? This condition is diagnosed by measuring your blood pressure while you are seated, with your arm resting on a flat surface, your legs uncrossed, and your feet flat on the floor. The cuff of the blood pressure monitor will be placed directly against the skin of your upper arm at the level of your heart. Blood pressure should be measured at least twice using the same arm. Certain conditions can cause a difference in blood pressure between your right and left arms. If you have a high blood pressure reading during one visit or you have normal blood pressure with other risk factors, you may be asked to: ??? Return on a different day to have your blood pressure checked again. ??? Monitor your blood pressure at home for 1 week or longer. If you are diagnosed with hypertension, you may have other blood or imaging tests to help your health care provider understand your overall risk for other conditions. How is this treated? This condition is treated by making healthy lifestyle changes, such as eating healthy foods, exercising more, and reducing your alcohol intake. You may be referred for counseling on a healthy diet and physical activity. Your health care provider may prescribe medicine if lifestyle changes are not enough to get your blood pressure under control and if: ??? Your systolic blood pressure is above 130. ??? Your diastolic blood pressure is above 80. Your personal target blood pressure may vary depending on your medical conditions, your age, and other factors. Follow these instructions at home: Eating and drinking ??? Eat a diet that is high in fiber and potassium, and low in sodium, added sugar, and fat. An example of this eating plan is called the DASH diet. DASH stands for Dietary Approaches to Stop Hypertension. To eat this way: ? Eat plenty of fresh fruits and vegetables. Try to fill one half of your plate at each meal with fruits and vegetables. ? Eat whole grains, such as whole-wheat pasta, brown rice, or whole-grain bread. Fill about one fourth of your plate with whole grains. ? Eat or drink low-fat dairy products, such as skim milk or low-fat yogurt. ? Avoid fatty cuts of meat, processed or cured meats, and poultry with skin. Fill about one fourth of your plate with lean proteins, such as fish, chicken without skin, beans, eggs, or tofu. ? Avoid pre-made and processed foods. These tend to be higher in sodium, added sugar, and fat. ??? Reduce your daily sodium intake. Many people with hypertension should eat less than 1,500 mg of sodium a day. ??? Do not drink alcohol if: ? Your health care provider tells you not to drink. ? You are , may be , or are planning to become . ??? If you drink alcohol: ? Limit how much you have to: ? 0?1 drink a day for women. ? 0?2 drinks a day for men. ? Know how much alcohol is in your drink. In the [place] one drink equals one 12 oz bottle (more content not included)... [facility] 07-20-2024 Note Patient Education BMI for Adults Body mass index (BMI) is a number found using a person's weight and height. BMI can help tell how much of a person's weight is made up of fat. BMI does not measure body fat directly. It is used instead of tests that directly measure body fat, which can be difficult and expensive. What are BMI measurements used for? BMI is useful to: ??? Find out if your weight puts you at higher risk for medical problems. ??? Help recommend changes, such as in diet and exercise. This can help you reach a healthy weight. BMI screening can be done again to see if these changes are working. How is BMI calculated? Your height and weight are measured. The BMI is found from those numbers. This can be done with U.[place] or metric measurements. Note that charts and online BMI calculators are available to help you find your BMI quickly and easily without doing these calculations. To calculate your BMI in [place] measurements: 1. Measure your weight in pounds (lb). 2. Multiply the number of pounds by 703. ??? So, for an adult who weighs 150 lb, multiply that number by 703: 150 x 703, which equals 105,450. 3. Measure your height in inches. Then multiply that number by itself to get a measurement called inches squared. ??? So, for an adult who is 70 inches tall, the inches squared measurement is 70 inches x 70 inches, which equals 4,900 inches squared. 4. Divide the total from step 2 (number of lb x 703) by the total from step 3 (inches squared): 105,450 ? 4,900 = 21.5. This is your BMI. To calculate your BMI in metric measurements: 1. Measure your weight in kilograms (kg). ??? For this example, the weight is 70 kg. 2. Measure your height in meters (m). Then multiply that number by itself to get a measurement called meters squared. ??? So, for an adult who is 1.75 m tall, the meters squared measurement is 1.75 m x 1.75 m, which equals 3.1 meters squared. 3. Divide the number of kilograms (your weight) by the meters squared number. In this example: 70 ? 3.1 = 22.6. This is your BMI. What do the results mean? BMI charts are used to see if you are underweight, normal weight, overweight, or obese. The following guidelines will be used: ??? Underweight: BMI less than 18.5. ??? Normal weight: BMI between 18.5 and 24.9. ??? Overweight: BMI between 25 and 29.9. ??? Obese: BMI of 30 or above. BMI is a tool and cannot diagnose a condition. Talk with your health care provider about what your BMI means for you. Keep these notes in mind: ??? Weight includes fat and muscle. Someone with a muscular build, such as an athlete, may have a BMI that is higher than 24.9. In cases like these, BMI is not a correct measure of body fat. ??? If you have a BMI of 25 or higher, your provider may need to do more testing to find out if excess body fat is the cause. ??? BMI is measured the same way for males and females. Females usually have more body fat than males of the same height and weight. Where to find more information For more information about BMI, including tools to quickly find your BMI, go to: ??? Centers for Disease Control and Prevention: cdc.gov ??? [place] Heart Association: heart.org ??? National Heart, Lung, and Blood [place]: nhlbi.nih.gov This information is not intended to replace advice given to you by your health care provider. Make sure you discuss any questions you have with your health care provider. Document Revised: 02/18/2023 Document Reviewed: 02/11/2023 [employer] Patient Education ? 2023 [employer]. Nutrition BMI for Adults Body mass index (BMI) is a number found using a person's weight and height. BMI can help tell how much of a person's weight is made up of fat. BMI does not measure body fat directly. It is used instead of tests that directly measure body fat, which can be difficult and expensive. What are BMI measurements used for? BMI is useful to: ??? Find out if your weight puts you at higher risk for medical problems. ??? Help recommend changes, such as in diet and exercise. This can help you reach a healthy weight. BMI screening can be done again to see if these changes are working. How is BMI calculated? Your height and weight are measured. The BMI is found from those numbers. This can be done with U.S. or metric measurements. Note that charts and online BMI calculators are available to help you find your BMI quickly and easily without doing these calculations. To calculate your BMI in [place]. measurements: 1. Measure your weight in pounds (lb). 2. Multiply the number of pounds by 703. ??? So, for an adult who weighs 150 lb, multiply that number by 703: 150 x 703, which equals 105,450. 3. Measure your height in inches. Then multiply that number by itself to get a measurement called inches squared. ??? So, for an adult who is 70 inches tall, the inches squared measurement is 70 inches x 70 inches, which equals 4,900 inches squared. 4. Divide the (more content not included)... [facility] 07-23-2022 Evaluation note Encounter Date Diagnosis Assessment Notes Jul, Contact with and (suspected) exposure to other viral communicable diseases (ICD-10 - Z20.828) Jul, Viral gastroenteritis (ICD-10 - A08.4) Advised patient that rapid Influenza A/B test was negative today in office. Discussed diagnosis with patient. No apparent signs of significant dehydration. Advised patient to take ondansetron as directed as needed for nausea/vomiting. Oral hydration discussed, diet discussed, advance as tolerated. Caution with use of OTC anti-diarrheal medications. Immediate eval in ER for blood in stool or vomit, abdominal pain, fever, neck pain/stiffness, continued inability to keep fluids down despite using ondansetron, dehydration (decreased urine output, sunken in eyes, dry mucus membranes), or any other new or concerning symptoms. Follow up with PCP if no improvement in 24 hours. Patient verbalizes understanding and is agreeable to treatment plan [facility] Other Evaluation + Plan note Future Appointments Appointment Date:03/05/2025 07:00:00 AM Scheduled Provider:Kathy Mcallister MD Location:[facility] Appointment Type:[facility] Evaluation note* Diagnosis Other atopic dermatitis- Primary Lentigines Melanocytic nevus of trunk Benign neoplasm of skin of trunk, except scrotum Capillary angioma Nevus, non-neoplastic Seborrheic keratosis Neoplasm of unspecified behavior of bone, soft tissue, and skin documented in this encounter [facility] N[facility] - Reported* Type Description Date Surgical History knee surgery Surgical History hernia Surgical History shoulder surgery 2008 [facility] Other Hospital course Narrative No data available for this section [facility] Hospital Discharge instructions No data available for this section [facility] Progress note No data available for this section [facility] Summary Purpose Family History No Family History Records FoundNo Family History Records FoundNo Family History Records FoundNo Family History Records FoundNo Family History Records FoundNo Family History Records Found No data available for this section No Family History Records FoundNo Family History Records Found Advance Directives No Advanced Directives Records FoundNo Advanced Directives Records FoundNo Advanced Directives Records FoundNo Advanced Directives Records FoundNo Advanced Directives Records FoundNo Advanced Directives Records FoundNo Advanced Directives Records FoundNo Advanced Directives Records Found Additional Source Comments (unrecognized sect ion and content) No Status Records FoundNo Status Records FoundNo Status Records FoundNo Status Records FoundNo Status Records FoundNo Status Records FoundNo Status Records FoundNo Status Records Found INFORMATION SOURCE (unrecogn ized section and content) DATE CREATED AUTHOR 01/13/2018 [facility] DATE CREATED AUTHOR AUTHOR'S ORGANIZ ATION 09/17/2021 [facility] DATE CREATED AUTHOR AUTHOR'S ORGANIZ ATION 09/05/2024 [facility] DATE CREATED AUTHOR AUTHOR'S ORGANIZ ATION 09/26/2024 [facility] EPIC DATE CREATED AUTHOR AUTHOR'S ORGANIZ ATION 11/23/2024 [facility] REASON FOR VISIT (unrecogniz ed section and content) Reason Comments Skin Check Specialty Diagnoses / Procedures Referred By Christen peters Referred To Contact Dermatology Diagnoses encounter for surveillance of abnormal nevi Procedures office visit Kathy Mcallister MD [address] [place] [address] Phone: tel: fax: Gila Roche MD [address] [address] Phone: tel: fax: Referral ID Status Reason Start Date Expiration Date Visits Re quested Visits Authorized [id number] Closed 09/07/2024 03/06/2025 1 1 Patient Care team nathan wright (unrecognized section and content) Personnel Name: Kathy Mcallister MD Address: [address] [place], [place] [address] [employer]: FOR RECORDS PERTAINING TO PATIENTS WHO ARE OR HAVE BEEN ENROLLED IN A CHEMICAL DEPENDENCY/SUBSTANCEABUSE PROGRAM, SOME INFORMATION MAY BE OMITTED. This clinical summary was aggregated from multiple sources. Caution should be exercised in using it in the provision of clinical care. This summary normalizes information from multiple sources, and as a consequence, information in this document may materially change the coding, format and clinical context of patient data. In addition, data may be omitted in some cases. CLINICAL DECISIONS SHOULD BE BASED ON THE PRIMARY CLINICAL RECORDS. [facility]. provides no warranty or guarantee of the accuracy or completeness of information in this document.
--- NOTE | 2024-11-27 23:59 | ED.GENADUL1 ---
HPI HPI - General Adult General Chief complaint: Headache Stated complaint: MIGRAINE Time Seen by Provider: 11/27/24 23:50 Source: patient Mode of arrival: walk-in Limitations: no limitations History of Present Illness HPI narrative: This 44-year-old male with a history of migraine headaches presents for evaluation of a migraine headache that started around 2 PM. It is posterior occipital in nature. It is a typical migraine for him. It is throbbing. He has mild photophobia associated with denies any nausea or vomiting. He took a muscle relaxant which usually helps him with his migraine headaches but it did not resolve. He does not have any focal neurologic weakness numbness or tingling. He does not have any blurred vision or slurred speech. Related Data Home Medications ?Medication ?Instructions ?Recorded ?Confirmed cyclobenzaprine 5 mg tablet mg 11/27/24 Allergies Allergy/AdvReac Type Severity Reaction Status Date / Time No Known Drug Allergies Allergy Verified 11/27/24 23:20 Opioid HPI Opioid Management Most Recent Opioid Data: Last Pain Scale 7 Today, 01:05 Last AUG Pain Assessment Today, 00:38 Review of Systems ROS Status of ROS 10 or more systems reviewed and unremarkable except as noted in history and below PFSH PFSH Social History Little interest or pleasure in doing things: not at all Feeling down, depressed, or hopeless: not at all Exam Narrative Exam Narrative: Vital signs and Nursing Notes reviewed: Patient is afebrile with a normal pulse, blood pressure is elevated at 188/112, he is not hypoxic with pulse ox of 97% on room air General: Awake, alert, oriented, nontoxic but uncomfortable appearing thin male, no respiratory distress, he is sitting in a dark room with his hoodie over his face HEENT: Normocephalic atraumatic, mucous membranes are moist and pink, eyes are clear, normal conjunctiva, vision is grossly intact with mild photophobia Neck: Supple, no meningeal signs, no nuchal rigidity Chest: Lungs are clear to auscultation with good air entry, there is no wheezing rhonchi or rales appreciated no accessory muscle use, patient is speaking in complete sentences-no chest wall tenderness to palpation CVS: Regular rate and rhythm S1-S2, no murmurs rubs or gallops, pulses are brisk and equal bilaterally ABD: Soft, nondistended, nontender, no rebound guarding or rigidity, bowel sounds are normal, no pulsatile masses appreciated Extremities: Moving all extremities, no lower extremity tenderness or swelling noted Skin: Normal in appearance without rash,pallor, petechiae or purpura Neuro: No focal deficits, speech is clear, personal service representative strength is intact, negative pronator drift, positive rapid alternating hand movements, stroke scale is negative Constitutional Vital Signs, click to edit/add: Last Vital Signs Temp 97.7 F 11/27/24 23:17 Pulse 87 11/27/24 23:17 Resp 14 11/27/24 23:17 BP 188/112 H 11/27/24 23:17 Pulse Ox 97 11/27/24 23:17 O2 Del Method Room Air 11/27/24 23:17 Course Vital Signs Vital signs: Vital Signs Temperature 97.7 F 11/27/24 23:17 Pulse Rate 87 11/27/24 23:17 Respiratory Rate 14 11/27/24 23:17 Blood Pressure 188/112 H 11/27/24 23:17 Pulse Oximetry 97 11/27/24 23:17 Oxygen Delivery Method Room Air 11/27/24 23:17 Temperature 97.7 F 11/27/24 23:17 Pulse Rate 87 11/27/24 23:17 Respiratory Rate 14 11/27/24 23:17 Blood Pressure 188/112 H 11/27/24 23:17 Pulse Oximetry 97 11/27/24 23:17 Oxygen Delivery Method Room Air 11/27/24 23:17 Medical Decision Making MDM Narrative Medical decision making narrative: 44-year-old male with a history of headaches which he describes as migraine headaches but sound more like cervicogenic headaches that come from his neck upward presents for evaluation of a headache that started around 2 PM. Is a typical headache for him without any thunderclap presentation, nuchal rigidity or fever. He has some mild photophobia but no nausea or vomiting. He has no chest pain or shortness of breath. He has no neurologic symptoms associated with his headaches. He had taken a Flexeril which usually helps his headaches without significant improvement. The patient was driving. He was medicated with IM Solu-Medrol, Toradol and Norflex with mild clinical improvement. He request to be discharged home despite the fact that his headache has not resolved. He will be given a dose of Zofran and [place] to take at home to help him rest and sleep and hopefully his headache will resolve overnight. He was encouraged to follow-up closely with his family physician and return to the emergency department as needed for worsening symptoms or any concerns. Discharge Plan Discharge Chief Complaint: Headache Clinical Impression: Migraine Patient Disposition: Home, Self-Care Time of Disposition Decision: 01:00 Condition: Good Prescriptions / Home Meds: No Action cyclobenzaprine 5 mg tablet Print Language: Colombian Instructions: Migraine Headache (ED) Referrals: Physician,Non-Staff, MD [Primary Care Provider] - 1 week
[2024-11-28] MEDS: ORPHENADRINE 60 MG/2 ML VIAL IM (00:37)
[2024-11-28] MEDS: KETOROLAC TROMETHAMINE 60 MG/2 ML VIAL IM (00:38)
[2024-11-28] MEDS: METHYLPREDNISOLONE SOD SUCC PF 125 MG/2 ML VIAL IM (00:38)
[2024-11-28] MEDS: HYDROCODONE/ACET 5-325 MG TABLET PO (01:05)
[2024-11-28] MEDS: ONDANSETRON 4 MG RAPDIS TABLET SL (01:05)
== END 2024-11-28 01:16 | disposition home or self-care (01) ==
PROVIDERS: Emergency Provider Emergency Medicine
DX: G43.909 Migraine, unspecified, not intractable, without status migrainosus (principal)
CPT/HCPCS: 96372; 99284; J1885; J2360; J2919; Q0162